=== PATIENT | female | born 1970 | race Two or more races ===

== ENCOUNTER 2017-07-19 09:41 | Emergency (ER) | payer OTHER ==
[~2017-07-19] VITALS: Ht 149.9 cm; Wt 41.3 kg
[2017-07-19] MEDS ORDERED: VALSARTAN40 MG (10:00)
== END 2017-07-19 15:54 | disposition home or self-care (01) ==
LOC: ER 09:41
DX: B34.9 Viral infection, unspecified (principal)

== ENCOUNTER 2018-02-15 13:02 | Emergency (ER) | payer OTHER ==
[~2018-02-15] VITALS: Ht 149.9 cm; Wt 42.6 kg
[~2018-02-15 13:02] MED LIST: VALSARTAN40 MG
== END 2018-02-15 15:39 | disposition home or self-care (01) ==
LOC: ER 13:02
DX: S05.11XA Contusion of eyeball and orbital tissues, right eye, initial encounter (principal); S00.83XA Contusion of other part of head, initial encounter; W18.39XA Other fall on same level, initial encounter; Y93.89 Activity, other specified; Y92.488 Other paved roadways as the place of occurrence of the external cause; Y99.8 Other external cause status

== ENCOUNTER 2018-02-23 09:06 | Outpatient (CLI) | payer OTHER | END 2018-02-23 09:14 | disposition home or self-care, planned readmission (81) | LOC: RAD 09:06 | DX: R07.81 Pleurodynia (principal); M94.0 Chondrocostal junction syndrome [Tietze] ==

== ENCOUNTER → 2019-03-13 | Outpatient (CLI) | payer OTHER | END | disposition home or self-care (01) | LOC: RAD 07:48 | DX: N62 Hypertrophy of breast (principal) ==

== ENCOUNTER 2019-08-29 12:10 | Outpatient (CLI) | payer OTHER | END 2019-08-29 12:11 | disposition home or self-care (01) | LOC: RAD 12:10 | DX: M54.2 Cervicalgia (principal) ==

== ENCOUNTER 2020-05-16 12:50 | Outpatient (CLI) | payer OTHER | END 2020-05-16 15:00 | disposition home or self-care (01) | LOC: LAB 12:50 | DX: Z20.828 Contact with and (suspected) exposure to other viral communicable diseases (principal) ==

== ENCOUNTER 2020-09-25 10:26 | Outpatient (CLI) | payer OTHER | END 2020-09-25 10:27 | disposition home or self-care (01) | LOC: LAB 10:26 | PROVIDERS: ATTEND Psychiatry & Neurology Neurology | DX: G43.901 Migraine, unspecified, not intractable, with status migrainosus (principal) ==

== ENCOUNTER 2022-10-17 09:58 | Emergency (ER) | payer OTHER ==
[~2022-10-17] VITALS: Ht 149.9 cm; Wt 39.5 kg
[2022-10-17] MEDS ORDERED: PROPRANOLOL HCL10 MG (10:58)
== END 2022-10-17 12:45 | disposition home or self-care (01) ==
LOC: ER 09:58
DX: R07.81 Pleurodynia (principal)